=== PATIENT | female | born 1985 | race Caucasian/White ===

== ENCOUNTER 2022-04-12 21:23 | Emergency (ER) | payer BC, MEDICAID, OTHER ==
[~2022-04-12] VITALS: Ht 162.6 cm; Wt 113.6 kg
--- NOTE | 2022-04-12 21:28 | PHYS DOC ---
Past History Past Medical History: No Pertinent History Past Surgical History: Other Alcohol Use: None Drug Use: None General Adult EDM: Chief Complaint: BACK PAIN OR INJURY HPI: HPI: "... I got bad back problems.. I ve already had my CT.. and to get a MRI.... and referral to Neurosurgery... I had surgery back 4 yrs ago.. at [facility].. but my doctor .. Keagan.. and to got to Emergency room if the pain got worse tonight..."..".. I can't ever walk to the bath room because of the pain...".. " It all started after I was moving a mattress the other day..." Patient is a 36 year old female who presents with above hx and complaints of exacerbation of her chronic back pain. Patient reports that symptoms started after attempting to move a mattress last patient reports that pain has gotten much worse during the interval. Did have a CT which showed L4-L5 spinal stenosis with recommendation of MRI. Patient has previously followed at [facility] for her surgery and disc extrusion. Patient states last disc denies section was an 2017. Patient currently states pain is so severe she is unable to walk. Patient does complain of some thigh numbness. Does have bilateral sciatic complaints. Patient normally follows with Dr. Sullivan.and Dr. Boogie. Pt. reports she has not been will have a stool for the last 5 days. Patient states currently she is unable to make it to the bathroom or even walk because of pain. Patient denies any history of immunosuppression. No fever or chills. Patient rates her back pain is 10 out of 10. Review of Systems: Review of Systems: Constitutional: Denies fever or chills Eyes: Denies change in visual acuity HENT: Denies nasal congestion or sore throat Respiratory: Denies cough or shortness of breath Cardiovascular: Denies chest pain or edema GI: Denies abdominal pain, nausea, vomiting, bloody stools or diarrhea : Denies dysuria Musculoskeletal: Complaints of severe back pain Integument: Denies rash Neurologic: Denies headache, focal weakness or sensory changes Endocrine: Denies polyuria or polydipsia Lymphatic: Denies swollen glands Psychiatric: Denies depression or anxiety Family History: Family History: Noncontributory to presentation Current Medications: Current Meds: See nursing for home meds Allergies: Allergies: Allergies Coded Allergies Type Severity Reaction Last Updated Verified No Known Drug Allergies 02/05/16 No Physical Exam: PE: Constitutional: in acute distress, non-toxic appearance. [] HENT: Normocephalic, atraumatic, bilateral external ears normal, oropharynx moist, no oral exudates, nose normal. [] Eyes: PERRLA, EOMI, conjunctiva normal, no discharge. [] Neck: Normal range of motion, no tenderness, supple, no stridor. [] Cardiovascular:Heart rate regular rhythm, no murmur [] Lungs & Thorax: Bilateral breath sounds clear to auscultation [] Abdomen: Bowel sounds normal, soft, no tenderness, no masses, no pulsatile masses. Obese. Skin: Warm, dry, no erythema, no rash. [] Back: No tenderness, no CVA tenderness. Bilateral sciatica. Old scar Extremities: No tenderness, no cyanosis, no clubbing, ROM intact, no edema. Numbness and bilateral upper thighs Neurologic: Alert and oriented X 3, complains of severe motor weakness when she attempts to walk. Has distal sensory. Complains of numbness in bilateral thigh s DTRs are +2 Psychologic: Affect anxious l, judgement normal, mood referral EKG: EKG: [] Radiology/Procedures: Radiology/Procedures: *(Reviewed prior CT on her phone.- Radiology recommends MRI] Heart Score: C/O Chest Pain: N/A Risk Factors: Risk Factors: DM, Current or recent (<one month) smoker, HTN, HLP, family history of CAD, obesity. Risk Scores: Score 0 - 3: 2.5% MACE over next 6 weeks - Discharge Home Score 4 - 6: 20.3% MACE over next 6 weeks - Admit for Clinical Observation Score 7 - 10: 72.7% MACE over next 6 weeks - Early Invasive Strategies Course & Med Decision Making: Course & Med Decision Making Pertinent Labs and Imaging studies reviewed. (See chart for details) Pt. accepted at [facility]- Possible MRI and Neuro-surgical consult. Dr.Rao Harris Impression: 1. Acute Sciatica 2. L4-5 Spinal Stenosis- 3. Pain Management [] Ann Disclaimer: Ann Disclaimer: This electronic medical record was generated, in whole or in part, using a voice recognition dictation system. Departure Departure: Referrals: BROCKERT,SHARLENE G MD (PCP) Ann Disclaimer This chart was dictated in whole or in part using Voice Recognition software in a busy, high-work load, and often noisy Emergency Department environment. It may contain unintended and wholly unrecognized errors or omissions. Dragon Disclaimer This chart was dictated in whole or in part using Voice Recognition software in a busy, high-work load, and often noisy Emergency Department environment. It may contain unintended and wholly unrecognized errors or omissions. PREETI KOENIG MD April 12, 2022 21:28
[2022-04-12] MEDS ORDERED: MORPHINE SULFATE 10 MG/ML SYRINGE. SQ ONE (22:30)
[2022-04-12] MEDS ORDERED: ORPHENADRINE CITRATE 60 MG/2 ML VIAL. IV ONE (22:30)
[2022-04-12] MEDS ORDERED: methylPREDNISolone ACETATE 40 MG/ML VIAL. IM ONE (22:30)
[2022-04-12 23:59] LABS: HEMATOCRIT 41.3 % (36.0-47.0); HEMOGLOBIN 13.8 g/dL (12.0-15.5); RED BLOOD COUNT 4.54 x10^6/uL (3.50-5.40); RED CELL DISTRIBUTION WIDTH 13.8 % (11.5-14.5); WHITE BLOOD COUNT 15.2 x10^3/uL (4.0-11.0)
[2022-04-13 00:08] LABS: CALCIUM 8.9 mg/dL (8.5-10.1); CREATININE 0.9 mg/dL (0.6-1.0); GFR 71.3; POTASSIUM 3.7 mmol/L (3.5-5.1)
[2022-04-13 00:12] LABS: BACTERIA,URINE 0 /HPF (0-FEW); CLARITY,URINE CLEAR; COLOR,URINE YELLOW; GLUCOSE,URINE NEG (NEG); NITRITE,URINE NEG (NEG); RBC,URINE 0 /HPF (0-2); SQUAMOUS EPITHELIAL CELL,UR FEW /LPF; UROBILINOGEN,URINE 0.2 mg/dL (0.2 mg/dL); WBC,URINE OCC /HPF (0-4)
[2022-04-13 00:20] LABS: BARBITURATES NEG (NEG); BENZODIAZEPINES NEG (NEG); CANNABINOIDS NEG (NEG); COCAINE NEG (NEG); METHADONE NEG (NEG); OPIATES POS (NEG); PHENCYCLIDINE NEG (NEG)
[2022-04-13 00:21] LABS: AMPHETAMINE/METHAMPHETAMINE NEG (NEG)
[2022-04-13 01:22] VITALS: BP 134/86
== END 2022-04-13 01:40 | disposition short-term general hospital (02) ==
LOC: ER 21:23
DX: M54.42 Lumbago with sciatica, left side (principal); M54.41 Lumbago with sciatica, right side; M48.061 Spinal stenosis, lumbar region without neurogenic claudication; Z20.822 Contact with and (suspected) exposure to COVID-19
CPT/HCPCS: 36415; 80048; 80307; 81001; 85027; 87426; 96372; 96374; 99285; J1030; J2270; J2360

== ENCOUNTER 2022-04-23 15:41 | Emergency (ER) | payer BC ==
[~2022-04-23] VITALS: Ht 162.6 cm; Wt 109.8 kg
[2022-04-23] MEDS ORDERED: IV NORMAL SALINE 1,000ML 1,000 ML IV ONE (16:15)
--- NOTE | 2022-04-23 16:34 | PHYS DOC ---
Past History Past Medical History: No Pertinent History Additional Past Medical Histor: back pain l4, l5 (AURELIANO HOYT APRN) Past Surgical History: Other Additional Past Surgical Histo: gastric sleeve, l4,l5 (AURELIANO HOYT APRN) Alcohol Use: None Drug Use: None (AURELIANO HOYT APRN) General Adult EDM: Chief Complaint: MECHANICAL FALL HPI: HPI: Patient is a 36-year-old female who presents to the emergency department for multiple complaints. Patient had an L4/L5 disc ectomy at [facility] by Dr. Balbuena 1.5 weeks ago. She reports on Sunday she was ambulating with her cane and felt dizzy and had a syncopal episode and fell. Patient is noted to have a bruise to her right cheek. Patient reports on Sunday she started experiencing sternal/midsternal chest pain with shortness of breath. She reports that the chest pain is worse with movement and she has increased shortness of breath with exertion. She is also reporting swelling to her left lower leg. Currently she denies having any chest pain. She is taking Gabapentin at home for symptoms. (AURELIANO HOYT APRN) Review of Systems: Review of Systems: HENT: see HPI Respiratory: see HPI Cardiovascular: see HPI Musculoskeletal: see HPI Integument: see HPI Neurologic: see HPI (AURELIANO HOYT APRN) Current Medications: Current Meds: Current Medications Medications (Trade) Dose Ordered Sig/Elena Start Time Stop Time Status Last Admin Dose Admin Sodium Chloride 1,000 ml @ 1,000 mls/hr 1X ONCE 04/23/22 16:15 04/23/22 17:14 UNV (AURELIANO HOYT APRN) Allergies: Allergies: Allergies Coded Allergies Type Severity Reaction Last Updated Verified No Known Drug Allergies 02/05/16 No (AURELIANO HOYT APRN) Physical Exam: PE: Constitutional: Well developed, well nourished, no acute distress, pale appearing, non-toxic appearance. [] HENT: Normocephalic, ecchymosis below right eye, bilateral external ears normal, oropharynx moist, no oral exudates, nose normal. [] Eyes: PERRL, EOMI, conjunctiva normal, no discharge. [] Neck: Normal range of motion, no tenderness, supple, no stridor. [] Cardiovascular:Heart rate tachycardic rhythm, no murmur [] Lungs & Thorax: Bilateral breath sounds clear to auscultation [] Abdomen: Bowel sounds normal, soft, no tenderness, no masses, no pulsatile masses. [] Skin: Warm, dry, no erythema, no rash. [] Back: No tenderness, normal range of motion Extremities: No tenderness, no cyanosis, no clubbing, ROM intact, 1+ edema noted to left lower extremity, no edema noted to right lower extremity Neurologic: Alert and oriented X 3, normal motor function, normal sensory function, no focal deficits noted. [] Psychologic: Affect normal, judgement normal, mood normal. [] (AURELIANO HOYT PERSONAL ATTENDANT) Current Patient Data: Labs: Laboratory Tests Test 04/23/22 16:20 White Blood Count 10.4 x10^3/uL Red Blood Count 4.82 x10^6/uL Hemoglobin 15.0 g/dL Hematocrit 44.0 % Mean Corpuscular Volume 91 fL Mean Corpuscular Hemoglobin 31 pg Mean Corpuscular Hemoglobin Concent 34 g/dL Red Cell Distribution Width 14.4 % Platelet Count 250 x10^3/uL Neutrophils (%) (Auto) 72 % Lymphocytes (%) (Auto) 19 % Monocytes (%) (Auto) 6 % Eosinophils (%) (Auto) 2 % Basophils (%) (Auto) 1 % Neutrophils # (Auto) 7.5 x10^3uL Lymphocytes # (Auto) 2.0 x10^3/uL Monocytes # (Auto) 0.6 x10^3/uL Eosinophils # (Auto) 0.3 x10^3/uL Basophils # (Auto) 0.1 x10^3/uL D-Dimer (Noy) 13.96 mg/L Sodium Level 140 mmol/L Potassium Level 3.9 mmol/L Chloride Level 102 mmol/L Carbon Dioxide Level 26 mmol/L Anion Gap 12 Blood Urea Nitrogen 19 mg/dL Creatinine 1.1 mg/dL Estimated GFR (Cockcroft-Gault) 56.5 BUN/Creatinine Ratio 17 Glucose Level 106 mg/dL Calcium Level 9.8 mg/dL Total Bilirubin 0.4 mg/dL Aspartate Amino Transf (AST/SGOT) 25 U/L Alanine Aminotransferase (ALT/SGPT) 46 U/L Alkaline Phosphatase 85 U/L Troponin I High Sensitivity 374 ng/L Total Protein 7.9 g/dL Albumin 3.9 g/dL Albumin/Globulin Ratio 1.0 Current Medications Medications (Trade) Dose Ordered Sig/Elena Route PRN Reason Start Time Stop Time Status Last Admin Dose Admin Sodium Chloride 1,000 ml @ 1,000 mls/hr 1X ONCE IV 04/23/22 16:15 04/23/22 17:14 DC 04/23/22 17:00 Iohexol (Omnipaque 350 Mg/ml) 100 ml 1X ONCE IV 04/23/22 16:45 04/23/22 16:46 DC 04/23/22 16:49 Heparin Sodium/ Dextrose 250 ml @ 17.5 mls/hr CONT PRN IV SEE I/O RECORD 04/23/22 17:15 Heparin Sodium (Porcine) (Heparin Sodium) 8,800 unit 1X ONCE IV 04/23/22 17:15 04/23/22 17:22 DC 04/23/22 17:18 Heparin Sodium (Porcine) (Heparin Sodium) 3,300 unit PRN Q6HRS PRN IV FOR PTT LESS THAN 24 SECONDS 04/23/22 17:15 Heparin Sodium (Porcine) (Heparin Sodium) 2,000 unit PRN Q6HRS PRN IV FOR PTT LEVEL 24 - 27 SECONDS 04/23/22 17:15 Heparin Sodium (Porcine) (Heparin Sodium) 1,000 unit PRN Q6HRS PRN IV FOR PTT LEVEL 28 - 37 SECONDS 04/23/22 17:15 (AURELIANO HOYT APRN) EKG: EKG: EKG performed by ER staff at 1613 shows sinus tachycardia with a rate of 132 patient does have T wave inversions in lead III and aVF read by Dr. Novoa [] (AURELIANO HOYT APRN) Radiology/Procedures: Radiology/Procedures: [] XR CHEST 1V History: Reason: weakness / Spl. Instructions: / History: STATUS: REG ER ORD. PHYSICIAN: AURELIANO HOYT APRN REASON: syncope PROCEDURE: PORTABLE CHEST 1V XR CHEST 1V History: Reason: syncope / Spl. Instructions: Nurse did not take the bra off / History: Comparison: February 05, 2016 Findings: No consolidation or pleural effusion. Normal heart size. No pneumothorax. Impression: 1. No acute cardiopulmonary process. Electronically signed by: Mayo Grijalva DO (04/23/2022 5:24 PM) [facility] DICTATED AND SIGNED BY: MAYO GRIJALVA DO DATE: 04/23/22 172 CC: AURELIANO HOYT APRN; MAGALI NUÑEZ ~ PROCEDURE: CT ANGIOGRAPHY CHEST CTA CHEST History: Chest pain, short of air, tachycardia, recent surgery. Comparison: None. Technique: CTA of the pulmonary arteries with intravenous contrast. 3-D postprocessing was performed. Findings: Pulmonary arteries: There are 2 large linear saddle emboli extending into the bilateral main pulmonary arteries, involving each of the lobar pulmonary arteries and numerous segmental branches and distally. Aorta and great vessels: No aneurysm or dissection of the aortic arch or thoracic aorta. Thyroid: No significant abnormalities. Mediastinum and bubba: No mediastinal masses or adenopathy is seen. Esophagus: The visualized esophagus is normal. Heart: The heart is normal in size. There is no pericardial effusion. There is leftward bowing of the intraventricular septum. Airways, Lungs, Pleura: The airways are patent. No pleural effusion or pneumothorax. No airspace consolidation. Upper abdomen: Cholelithiasis. Postsurgical changes of the stomach partially visualized. Osseous structures and soft tissues: Within normal limits for age. Impression: 1. Acute saddle pulmonary emboli involving the bilateral main pulmonary arteries, lobar pulmonary arteries and numerous segmental branches and distally. Right heart strain. 2. Cholelithiasis. Findings discussed with Nitin Novoa at 04/23/2022 5:19 PM. FOR INTERNAL CODING PURPOSES RESULT CODE: (C) ------ Exposure: One or more of the following individualized dose reduction techniques were utilized for this examination: 1. Automated exposure control 2. Adjustment of the mA and/or kV according to patient size 3. Use of iterative reconstruction technique. Electronically signed by: Shun Urrutia MD (04/23/2022 5:32 PM) [id number] DICTATED AND SIGNED BY: SHUN URRUTIA MD DATE: 04/23/22 171 CC: AURELIANO HOYT APRN; MAGALI NUÑEZ ~ (AURELIANO HOYT APRN) Heart Score: C/O Chest Pain: Yes HEART Score for Chest Pain: HEART Score for Chest Pain Response (Comments) Value History Moderately Suspicious 1 ECG Nonspecific Repolarizatio 1 Age < 45 0 Risk Factors No Risk Factors 0 Troponin >3 x Normal Limit 2 Total 4 Risk Factors: Risk Factors: DM, Current or recent (<one month) smoker, HTN, HLP, family history of CAD, obesity. Risk Scores: Score 0 - 3: 2.5% MACE over next 6 weeks - Discharge Home Score 4 - 6: 20.3% MACE over next 6 weeks - Admit for Clinical Observation Score 7 - 10: 72.7% MACE over next 6 weeks - Early Invasive Strategies (AURELIANO HOYT APRN) Course & Med Decision Making: Course & Med Decision Making Pertinent Labs and Imaging studies reviewed. (See chart for details) []Patient had an L4/L5 disc ectomy at [facility] by Dr. Balbuena 1.5 weeks ago. She reports on Sunday she was ambulating with her cane and felt dizzy and had a syncopal episode and fell. Patient is noted to have a bruise to her right cheek. Patient reports on Sunday she started experiencing sternal/midsternal chest pain with shortness of breath. She reports that the chest pain is worse with movement and she has increased shortness of breath with exertion. She is also reporting swelling to her left lower leg. Currently she denies having any chest pain. Patient was given a liter of IV fluids Patient CBC was unremarkable. She had an elevated D-dimer at 13.96, troponin was elevated at 374. Chest x-ray did not show any acute findings. Patient did have a CT angio of her chest performed and the radiologist read patient is having multiple saddle pulmonary embolisms with evidence of right heart strain. He advised that patient may need intra-arterial tPA or clot retrieval. 1700: As patient is coming back into ER room from CT she does have a syncopal episode while in the ER cot. CT head ordered. Patient was started on heparin drip and heparin protocol. I contacted [facility] for transport of patient and they reported that due to the contrast shortage they are unable to accept the patient. Dr Novoa contacted [facility] and [facility] for transport. He obtained acceptance at [facility] on the [place] for patient. Patient transported via [employer] air transportation. (AURELIANO HOYT APRN) Dragon Disclaimer: Dragon Disclaimer: This electronic medical record was generated, in whole or in part, using a voice recognition dictation system. (AURELIANO HOYT APRN) Departure Departure: Impression: Primary Impression: Saddle pulmonary embolus Qualified Codes: I26.02 - Saddle embolus of pulmonary artery with acute cor pulmonale Disposition: 02 SHORT TERM HOSPITAL Condition: GUARDED Referrals: MAGALI NUÑEZ (PCP) Attending Co-Sign Attending Co-Sign The patient was seen and interviewed as well as examined at the bedside. The miki rt was reviewed. I actively participated in the care of this patient in the emergency department. The patient was found to have saddle pulmonary emboli with evidence of right heart strain on CT imaging. The patient was started on IV heparin for anticoagulation and continued on IV fluids. Initial attempt was made to contact [facility] regarding transfer due to patient's need for intra-arterial tPA and/or clot retrieval given elevated troponin level and evidence of right heart strain on CT imaging. Due to global IV contrast shortage, the patient unfortunately was unable to be accepted at [facility] as they did not have IV contrast material to be able to administer the procedure. We then contacted [facility]. After speaking with Dr. Shi, transfer physician, and Dr. Krause, interventional radiologist, the patient was accepted to be transferred for further care. The patient's vital signs remained significantly abnormal with a heart rate of 140 and a blood pressure that continues to stay at approximately 100-110 systolic. [facility] is in [facility] and is approximately 45 to 50 minutes away by ground ambulance. There is high concern for circulatory collapse in this patient and thus I do feel that the patient is a candidate for transfer by helicopter as opposed to ambulance. Patient thus was activated for transfer by [facility] helicopter. I spoke with patient and family regarding plan of care and they are all in agreement at time of disposition. Critical care time excluding procedures: 60 minutes (NITIN NOVOA MD) Attending Co-Sign The patient was seen and interviewed as well as examined at the bedside. The chart was reviewed. The case was discussed. Agree with the plan of care. (AURELIANO HOYT APRN) AURELIANO HOYT APRN April 23, 2022 16:34 NITIN NOVOA MD April 23, 2022 18:41
[2022-04-23] MEDS ORDERED: IOHEXOL 350 MG/ML 100 ML VIAL. IV ONE (16:45)
[2022-04-23 16:52] LABS: BASO # 0.1 x10^3/uL (0.0-0.2); BASO % 1 % (0-3); EOS # 0.3 x10^3/uL (0.0-0.7); EOS % 2 % (0-3); LYMPH % 19 % (24-48); MEAN CORPUSCULAR HEMOGLOBIN 31 pg (25-35); MEAN CORPUSCULAR HGB CONC 34 g/dL (31-37); MEAN CORPUSCULAR VOLUME 91 fL (79-100); MONO # 0.6 x10^3/uL (0.0-1.1); MONO % 6 % (0-9); NEUT # 7.5 x10^3uL (1.8-7.7); NEUT % 72 % (31-73); PLATELET COUNT 250 x10^3/uL (140-400); RED BLOOD COUNT 4.82 x10^6/uL (3.50-5.40); RED CELL DISTRIBUTION WIDTH 14.4 % (11.5-14.5); WHITE BLOOD COUNT 10.4 x10^3/uL (4.0-11.0)
[2022-04-23 17:01] LABS: CALCIUM 9.8 mg/dL (8.5-10.1); CREATININE 1.1 mg/dL (0.6-1.0); GFR 56.5; POTASSIUM 3.9 mmol/L (3.5-5.1)
[2022-04-23 17:07] LABS: ALBUMIN 3.9 g/dL (3.4-5.0); TOTAL BILIRUBIN 0.4 mg/dL (0.2-1.0); TOTAL PROTEIN 7.9 g/dL (6.4-8.2)
[2022-04-23] MEDS ORDERED: HEPARIN for IV BOLUS 10,000 UNIT/10 ML VIAL. IV PRN ×3 (17:15)
[2022-04-23] MEDS ORDERED: HEPARIN for IV BOLUS 10,000 UNIT/10 ML VIAL. IV ONE (17:15)
[2022-04-23] MEDS ORDERED: HEPARIN 25,000UTS/250ML PREMIX 250 ML IV PRN (17:15)
--- NOTE | 2022-04-23 17:26 | RAD ---
XR CHEST 1V History: Reason: syncope / Spl. Instructions: Nurse did not take the bra off / History: Comparison: February 05, 2016 Findings: No consolidation or pleural effusion. Normal heart size. No pneumothorax. Impression: 1. No acute cardiopulmonary process. Electronically signed by: Mayo Grijalva DO (04/23/2022 5:24 PM) [facility]
--- NOTE | 2022-04-23 17:35 | RAD ---
CTA CHEST History: Chest pain, short of air, tachycardia, recent surgery. Comparison: None. Technique: CTA of the pulmonary arteries with intravenous contrast. 3-D postprocessing was performed. Findings: Pulmonary arteries: There are 2 large linear saddle emboli extending into the bilateral main pulmonar y arteries, involving each of the lobar pulmonary arteries and numerous segmental branches and distal ly. Aorta and great vessels: No aneurysm or dissection of the aortic arch or thoracic aorta. Thyroid: No significant abnormalities. Mediastinum and bubba: No mediastinal masses or adenopathy is seen. Esophagus: The visualized esophagus is normal. Heart: The heart is normal in size. There is no pericardial effusion. There is leftward bowing of the intraventricular septum. Airways, Lungs, Pleura: The airways are patent. No pleural effusion or pneumothorax. No airspace cons olidation. Upper abdomen: Cholelithiasis. Postsurgical changes of the stomach partially visualized. Osseous structures and soft tissues: Within normal limits for age. Impression: 1. Acute saddle pulmonary emboli involving the bilateral main pulmonary arteries, lobar pulmonary ar teries and numerous segmental branches and distally. Right heart strain. 2. Cholelithiasis. Findings discussed with Teddy Dumas at 04/23/2022 5:19 PM. FOR INTERNAL CODING PURPOSES RESULT CODE: (C) ------ Exposure: One or more of the following individualized dose reduction techniques were utilized for thi s examination: 1. Automated exposure control 2. Adjustment of the mA and/or kV according to patient size 3. Use of iterative reconstruction technique. Electronically signed by: Shun Alvarez MD (04/23/2022 5:32 PM) [place] [id number]
[2022-04-23 18:45] VITALS: BP 112/59
== END 2022-04-23 18:55 | disposition short-term general hospital (02) ==
LOC: ER 15:41
DX: S00.83XA Contusion of other part of head, initial encounter (principal); I26.02 Saddle embolus of pulmonary artery with acute cor pulmonale; R55 Syncope and collapse; R07.2 Precordial pain; Z20.822 Contact with and (suspected) exposure to COVID-19; W18.39XA Other fall on same level, initial encounter; Y93.89 Activity, other specified; Y92.89 Other specified places as the place of occurrence of the external cause; Y99.8 Other external cause status
CPT/HCPCS: 36415; 71045; 71275; 80053; 84484; 85025; 85379; 87426; 93005; 96361; 96374; 99285; C9803; J1644; J7030; Q9967; U0003